=== PATIENT | female | born 1955 | race Caucasian/White ===

== ENCOUNTER → 2017-03-26 | Outpatient (CLI) | payer MEDICARE, OTHER ==
[2014-07-21 17:19] VITALS: BP 167/82
[~2017-03-26] MED LIST: ACET325T9 PO; ALBU2.5V5 NEB; ALBU8.5H8 IH; ASPI-482 PO; CALC-450 PO; CARI350T PO; CELE200C PO; CITA10TA8 PO; FENT1PAT17 TP; FLUC100T4 PO; GABA-586 PO; HYDR25TA9 PO; INSU100I13 SQ; INSU100I17 SQ; INSU100V8 SQ; IPRA4AER IH; LISI-334 PO; MELA5TAB PO; NAPR500T4 PO; PANT40TA5 PO; POTA10TA17 PO; PRED5TAB19 PO; SIMV40TA3 PO; TRAM-48 PO; TRAM50TA PO
--- NOTE | 2017-03-26 14:39 | RAD ---
3 views lumbar spine 03/26/2017 Clinical indication: Low back pain radiating to the right. Comparison: None. Findings: Multilevel lumbar spondylosis with disc space narrowing, endplate sclerosis and marginal osteophyte formation to a mild degree T12-L1 through L3-L4 and a moderate degree at L5-S1. L5-S1 facet hypertrophy. Calcified atheromatous disease of the abdominal aorta and iliac arteries. Vertebral body heights are maintained. No evidence of listhesis. Impression: 1. No radiographic evidence of acute lumbar spine fracture or significant listhesis. 2. Multilevel lumbar spondylosis, as detailed above.
[2017-03-26 15:07] LABS: CALCIUM 9.3 mg/dL (8.5-10.1); CREATININE 0.9 mg/dL (0.6-1.0); GFR 63.7; POTASSIUM 4.1 mmol/L (3.5-5.1)
[2017-03-26 15:23] LABS: BASO % 0 % (0-3); EOS # 0.1 x10^3/uL (0.0-0.7); EOS % 1 % (0-3); HEMATOCRIT 41.4 % (36.0-47.0); HEMOGLOBIN 13.3 g/dL (12.0-15.5); LYMPH # 1.5 x10^3/uL (1.0-4.8); LYMPH % 19 % (24-48); MEAN CORPUSCULAR HEMOGLOBIN 26 pg (25-35); MEAN CORPUSCULAR HGB CONC 32 g/dL (31-37); MEAN CORPUSCULAR VOLUME 81 fL (79-100); MONO # 0.4 x10^3/uL (0.0-1.1); MONO % 5 % (0-9); NEUT % 75 % (31-73); PLATELET COUNT 253 x10^3/uL (140-400); RED BLOOD COUNT 5.13 x10^6/uL (3.50-5.40); RED CELL DISTRIBUTION WIDTH 16.1 % (11.5-14.5)
[2017-03-26 16:02] LABS: BILIRUBIN,URINE NEG (NEG); CLARITY,URINE HAZY; COLOR,URINE YELLOW; GLUCOSE,URINE >=1000 mg/dL (NEG); NITRITE,URINE NEG (NEG); UROBILINOGEN,URINE 0.2 mg/dL (0.2 mg/dL)
[2017-03-26 16:03] LABS: BACTERIA,URINE MOD /HPF (0-FEW); SQUAMOUS EPITHELIAL CELL,UR MANY /LPF
[2017-03-26 16:04] LABS: YEAST,URINE PRESENT /HPF
[2017-03-28 01:09] LABS: HEMOGLOBIN A1C 9.5 % (4.8-5.6)
== END | disposition home or self-care (01) ==
LOC: DXRAD 14:10
PROVIDERS: ATTEND Family Medicine
DX: M54.31 Sciatica, right side (principal); M47.896 Other spondylosis, lumbar region; M25.78 Osteophyte, vertebrae; I10 Essential (primary) hypertension; E11.9 Type 2 diabetes mellitus without complications; R79.89 Other specified abnormal findings of blood chemistry; Z87.891 Personal history of nicotine dependence; Z79.4 Long term (current) use of insulin
CPT/HCPCS: 36415; 72100; 80048; 81001; 82043; 83036; 85025; 87086

== ENCOUNTER 2017-10-07 20:00 | Inpatient (IN) | payer MEDICARE, OTHER ==
[~2017-10-07] VITALS: Ht 161.3 cm; Wt 143.1 kg
[~2017-10-07 20:00] MED LIST changes: +NAPR-514 PO; -NAPR500T4 PO
[2017-10-07 20:30] VITALS: BP 131/81
[2017-10-07] MEDS ORDERED: CALC300T5 PO (20:54)
[2017-10-07] MEDS ORDERED: ROFL500T7 PO (20:54)
[2017-10-07] MEDS ORDERED: FAMO1TAB3 PO (20:54)
[2017-10-07] MEDS ORDERED: DICL100G18 TP (20:54)
[2017-10-07] MEDS ORDERED: FURO-68 PO (20:54)
[2017-10-07] MEDS ORDERED: METO50TA29 PO (20:54)
[2017-10-07] MEDS ORDERED: LIDO700A39 TOP (20:54)
[2017-10-07] MEDS ORDERED: INSU200I SQ (20:54)
[2017-10-07] MEDS ORDERED: [UNRECOGNIZED DRUG - CODE] TP (20:54)
[2017-10-07] MEDS ORDERED: MELA3TAB2 PO (20:54)
[2017-10-07] MEDS ORDERED: TIOT18CA IH (20:54)
[2017-10-07] MEDS ORDERED: SUCR1TAB35 PO (20:54)
[2017-10-07] MEDS ORDERED: CLOP75TA PO (20:54)
[2017-10-07] MEDS ORDERED: DILT120C80 PO (20:54)
[2017-10-07] MEDS ORDERED: INSU100I17 SQ (20:54)
[2017-10-07] MEDS ORDERED: FERR325T14 PO (20:54)
[2017-10-07] MEDS ORDERED: ALBU18HF IH (20:54)
[2017-10-07] MEDS ORDERED: EMPA25TA PO (20:54)
[2017-10-07] MEDS ORDERED: MELATONIN 3 MG TABLET PO PRN (23:30)
[2017-10-07] MEDS ORDERED: DEXTROSE 50% 25 GM / 50ML DISP.SYRIN. IV PRN (23:30)
[2017-10-07] MEDS ORDERED: GLYCERIN/WITCH HAZEL TOPICAL PADS 40'S JAR. TP PRN (23:30)
[2017-10-07] MEDS ORDERED: CALCIUM CARBONATE 500 MG TAB.CHEW PO PRN (23:30)
[2017-10-07 23:33] VITALS: BP 170/84
[2017-10-07] MEDS: ZOLPIDEM 5 MG TABLET. PO PRN (23:51)
[2017-10-07] MEDS: INSULIN GLARGINE 300 UNITS/3 ML INSULN.PEN. SQ SCH (23:52)
[2017-10-08] MEDS: IPRATRPIUM/ALBUTEROL 0.5/2.5MG 3 ML NEBU. NEB SCH ×4 (05:04→20:50)
[2017-10-08 05:38] VITALS: BP 149/78
[2017-10-08] MEDS: ACETAMINOPHEN 325 MG TABLET PO PRN (06:25)
[2017-10-08 06:47] LABS: CALCIUM 9.2 mg/dL (8.5-10.1); CREATININE 1.3 mg/dL (0.6-1.0); GFR 41.6; POTASSIUM 3.7 mmol/L (3.5-5.1)
[2017-10-08] MEDS ORDERED: INSULIN LISPRO 50 UNIT SQ SCH (08:00)
[2017-10-08] MEDS ORDERED: INSULIN ASPART 60 UNIT SQ SCH (08:00)
[2017-10-08] MEDS: NYSTATIN TOPICAL POWDER 15GM BOTTLE. TP SCH ×2 (08:46→21:13)
[2017-10-08] MEDS: ROFLUMILAST 500 MCG TABLET PO SCH (08:47)
[2017-10-08] MEDS: ASPIRIN ENTERIC COATED 81 MG TABLET.DR. PO SCH (08:47)
[2017-10-08] MEDS: LIDOCAINE (700MG/PATCH) PATCH. TD SCH (08:47)
[2017-10-08] MEDS: SUCRALFATE 1 GM TABLET. PO SCH (08:47)
[2017-10-08] MEDS: METOPROLOL SUCC 24HR ER 50 MG TAB.ER.24H. PO SCH (08:47)
[2017-10-08] MEDS: FUROSEMIDE 40 MG/4 ML VIAL IVP SCH ×2 (08:48→14:26)
[2017-10-08] MEDS: INSULIN LISPRO 300 UNITS/3 ML INSULN.PEN. SQ SCH ×3 (08:55→17:20)
[2017-10-08] MEDS: INSULIN GLARGINE 300 UNITS/3 ML INSULN.PEN. SQ SCH ×2 (08:56→21:07)
[2017-10-08] MEDS ORDERED: NON FORMULARY ITEM (Tiotropium Bromide (Spiriva) 18 MCG) IH SCH (09:00)
[2017-10-08] MEDS: NON FORMULARY ITEM (Empagliflozin (Jardiance) 25 MG) PO SCH (09:00)
[2017-10-08 10:51] VITALS: BP 123/74
--- NOTE | 2017-10-08 11:09 | PDOC2 ---
CONSULT Date of Admission DATE: 10/08/17 TIME: 10:58 Reason for Consult: CHF, acute on chronic, with preserved EF. Referring Physician: Emiliano Escoto MD Chief Complaint Shortness of breath. Source: Patient History of Present Illness She has an extensive past cardiac history including a non ST elevation myocardial infarction in May 2017 treated with drug-eluting stents to the left anterior descending and left circumflex coronary arteries, chronic diastolic congestive heart failure, paroxysmal atrial fibrillation, hypertension , type 2 diabetes mellitus, chronic obstructive pulmonary disease, and morbid obesity among other problems.For the past 1-2 weeks, she has been having increasing dyspnea on exertion as well as worsening lower extremity edema. Yesterday just moving from her bed to her commode was making her feel short of breath. She went to see her primary provider who then recommended hospitalization. She went to the emergency room at [facility] and admission was recommended. However, the hospital was fall and she was transferred to [facility] for admission. She was given intravenous Lasix in the emergency room at [facility]. This markedly helped her breathing. She still has significant edema. Prior to her myocardial infarction earlier this year, she was having chest pain. She denies any further chest pain. She has had some lightheaded spells but denies any syncope. She denies palpitations. She denies paroxysmal nocturnal dyspnea or orthopnea. Because of the congestive heart failure, a cardiology consultation was requested. Cardiovascular: CAD, CHF, HTN, OR, hyperipidemia Pulmonary: Asthma, COPD Heme/Onc: Cancer Musculoskeletal: low back pain (Chronic) Endocrine: Diabetes Past Surgical History: Appendectomy, Cholecystectomy, Cataract Removal, C- Section, Tonsillectomy, Hysterectomy Family History She denies any family history of premature coronary artery disease. Smoke: Quit Current Medications Current Medications Acetaminophen (Tylenol) 650 mg PRN Q6HRS PRN PO PAIN Last administered on at 06:25; Start 10/07/17 at 23:00 Aspirin (Aspirin Enteric Coated) 81 mg DAILYWBKFT PO Last administered on at 08:47; Start 10/08/17 at 08:00 Calcium Carbonate/ Glycine (Tums) 500 mg PRN Q4HRS PRN PO INDIGESTION; Start at 23:30 Non-Formulary Medication (Empagliflozin (Jardiance)) 25 mg DAILY PO ; Start 10/08 at 09:00; Status UNV Witch Breonna/ Glycerin (A.e.r Pads) 1 each PRN QID PRN TP RECTAL PAIN; Start 10/07/17 at 23:30 Non-Formulary Medication (Insulin Aspart (Novolog Flexpen)) 60 unit TIDWMEALS SQ ; Start 10/08/17 at 08:00; Status UNV Insulin Glargine (Lantus) 80 units BID SQ Last administered on 10/08/17at 08:56; Start 10/08/17 at 00:00 Non-Formulary Medication (Insulin Lispro (Humalog Kwikpen)) 50 unit TIDWMEALS SQ ; Start 10/08/17 at 08:00; Status UNV Lidocaine (Lidoderm) 1 patch DAILY TD Last administered on 10/08/17at 08:47; Start 10/08/17 at 09:00 Melatonin 3 mg PRN QHS PRN PO INSOMNIA; Start 10/07/17 at 23:30 Metoprolol Succinate (Toprol Xl) 50 mg DAILY PO Last administered on 10/08/17at 08:47; Start 10/08/17 at 09:00 Roflumilast (Daliresp) 500 mcg DAILY PO Last administered on 10/08/17at 08:47; Start 10/08/17 at 09:00 Sucralfate (Carafate) 1 gm DAILY PO Last administered on 10/08/17at 08:47; Start 10/08/17 at 09:00 Non-Formulary Medication (Tiotropium Ayr (Spiriva)) 18 mcg DAILY IH ; Start 10/08/17 at 09:00; Status UNV Furosemide (Lasix) 40 mg [id number] IVP Last administered on 10/08/17at 08:48; Start 10/08/17 at 09:00 Zolpidem Tartrate (Ambien) 5 mg PRN QHS PRN PO INSOMNIA, MAY REPEAT IN 1HR Last administered on 10/07/17at 23:51; Start 10/07/17 at 23:15 Insulin Human Lispro (HumaLOG) 0-9 UNITS TIDWMEALS SQ Last administered on at 08:55; Start 10/08/17 at 08:00 Dextrose 12.5 gm PRN Q15MIN PRN IV SEE COMMENTS; Start 10/07/17 at 23:30 Albuterol/ Ipratropium (Duoneb) 3 ml RTQID NEB Last administered on 10/08/17at 05 :04; Start 10/08/17 at 08:00 Miscellaneous (Lidoderm Patch Removal) 1 ea QHS MC ; Start 10/08/17 at 21:00 Nystatin (Nystop) 1 jay BID TP Last administered on 10/08/17at 08:46; Start at 09:00 Active Scripts Active Reported Tums Dual Action Tablet Chew (Famotidine/Ca Carb/Mag Hydrox) 1 Each Tab.chew 1 Each PO Tums (Calcium Carbonate) 300 Mg Tab.chew 300 Mg PO PRN Q4HRS PRN LAST DOSE GIVEN: DATE: TIME: NEXT DOSE DUE: DATE: TIME: Melatonin 3 Mg Tablet 3 Mg PO PRN QHS PRN LAST DOSE GIVEN: DATE: TIME: NEXT DOSE DUE: DATE: TIME: Ventolin Hfa Inhaler (Albuterol Sulfate) 18 Gm Hfa.aer.ad 2 Puff IH PRN Q6HRS PRN LAST DOSE GIVEN: DATE: TIME: NEXT DOSE DUE: DATE: TIME: Carafate (Sucralfate) 1 Gm Tablet 1 Gm PO DAILY LAST DOSE GIVEN: DATE: TIME: NEXT DOSE DUE: DATE: TIME: Spiriva (Tiotropium Ayr) 18 Mcg Cap.w.dev 18 Mcg IH DAILY LAST DOSE GIVEN: DATE: TIME: NEXT DOSE DUE: DATE: TIME: Novolog Flexpen (Insulin Aspart) 100 Unit/1 Ml Insuln.pen 60 Unit SQ TIDWMEALS LAST DOSE GIVEN: DATE: TIME: NEXT DOSE DUE: DATE: TIME: Medi Pads (Glycerin/Witch Breonna [place]) 1 Each Med..pad 1 Each TP QID PRN LAST DOSE GIVEN: DATE: TIME: NEXT DOSE DUE: DATE: TIME: Ferrous Sulfate 325 Mg Tablet 325 Mg PO HS LAST DOSE GIVEN: DATE: TIME: NEXT DOSE DUE: DATE: TIME: Metoprolol Succinate ( Xl ) (Metoprolol Succinate) 50 Mg Tab.er.24h 50 Mg PO DAILY LAST DOSE GIVEN: DATE: TIME: NEXT DOSE DUE: DATE: TIME: Lidocaine 1 Each Adh..patch 1 Patch TOP DAILY LAST DOSE GIVEN: DATE: TIME: NEXT DOSE DUE: DATE: TIME: Jardiance (Empagliflozin) 25 Mg Tablet 25 Mg PO DAILY LAST DOSE GIVEN: DATE: TIME: NEXT DOSE DUE: DATE: TIME: Humalog Kwikpen (Insulin Lispro) 200 Unit/1 Ml Insuln.pen 50 Unit SQ TIDWMEALS LAST DOSE GIVEN: DATE: TIME: NEXT DOSE DUE: DATE: TIME: Lasix (Furosemide) 40 Mg Tablet 40 Mg PO DAILY LAST DOSE GIVEN: DATE: TIME: NEXT DOSE DUE: DATE: TIME: Diltiazem 24HR Cd (Diltiazem Hcl) 120 Mg Cap.er.24h 120 Mg PO DAILY LAST DOSE GIVEN: DATE: TIME: NEXT DOSE DUE: DATE: TIME: Voltaren (Diclofenac Sodium) 100 Gm Gel..gram. 1 Jay TP PRN QID PRN LAST DOSE GIVEN: DATE: TIME: NEXT DOSE DUE: DATE: TIME: Daliresp (Roflumilast) 500 Mcg Tablet 500 Mg PO DAILY LAST DOSE GIVEN: DATE: TIME: NEXT DOSE DUE: DATE: TIME: Clopidogrel (Clopidogrel Bisulfate) 75 Mg Tablet 75 Mg PO DAILY LAST DOSE GIVEN: DATE: TIME: NEXT DOSE DUE: DATE: TIME: Tramadol Hcl (Tramadol HCl) 50 Mg Tablet 50 Mg PO QIDPRN PRN LAST DOSE GIVEN: DATE: TIME: NEXT DOSE DUE: DATE: TIME: Celexa (Citalopram Hydrobromide) 10 Mg Tablet 10 Mg PO DAILY LAST DOSE GIVEN: DATE: TIME: NEXT DOSE DUE: DATE: TIME: Lantus (Insulin Glargine,Hum.rec.anlog) 100 Unit/1 Ml Vial 80 Unit SQ BID LAST DOSE GIVEN: DATE: TIME: NEXT DOSE DUE: DATE: TIME: Tylenol (Acetaminophen) 325 Mg Tablet 2 Tab PO PRN Q6HRS PRN LAST DOSE GIVEN: DATE: TIME: NEXT DOSE DUE: DATE: TIME: Simvastatin 40 Mg Tablet 40 Mg PO HS LAST DOSE GIVEN: DATE: TIME: NEXT DOSE DUE: DATE: TIME: Aspir 81 (Aspirin) 81 Mg Tablet.dr 81 Mg PO DAILY LAST DOSE GIVEN: DATE: TIME: NEXT DOSE DUE: DATE: TIME: Hydrochlorothiazide Tablet (Hydrochlorothiazide) 25 Mg Tablet 25 Mg PO TID LAST DOSE GIVEN: DATE: TIME: NEXT DOSE DUE: DATE: TIME: Allergies: Coded Allergies: Iodinated Contrast Media - IV Dye (Verified Allergy, Intermediate, 8/9/14) Tomato (Verified Allergy, Intermediate, Swelling, 10/15/13) ciprofloxacin (Verified Allergy, Intermediate, Rash, 10/15/13) codeine (Verified Allergy, Intermediate, 10/15/13) Review of System Review of 10 organ systems is as per the history of present illness, otherwise negative General: Alert, Oriented X3, Cooperative, No acute distress, Other (Morbidly obese.) HEENT: Atraumatic, EOMI, Mucous membr. moist/pink Lungs: Clear to auscultation, Normal air movement Heart: Regular rate, Normal S1, Normal S2, No murmurs, Other (1/6 systolic ejection murmur.) Abdomen: Normal bowel sounds, Soft, No tenderness Extremities: No clubbing, No cyanosis, No edema, Normal pulses, Other ( 2+ bilateral pretibial edema.) Skin: No rashes Neuro: Normal speech, Strength at 5/5 X4 ext, Normal tone, Cranial nerves 3-12 NL Psych/Mental Status: Mental status NL, Mood NL VITALS Vital Signs Date Time Temp Pulse Resp B/P (MAP) Pulse Ox O2 Delivery O2 Flow Rate FiO2 10/08/17 10:51 97.9 61 20 123/74 (90) 99 Nasal Cannula 3.0 Labs Laboratory Tests Test 10/07/17 21:48 10/08/17 06:20 10/08/17 07:43 Glucose (Fingerstick) 269 mg/dL (70-99) 191 mg/dL (70-99) Sodium Level 142 mmol/L (136-145) Potassium Level 3.7 mmol/L (3.5-5.1) Chloride Level 101 mmol/L (98-107) Carbon Dioxide Level 34 mmol/L (21-32) Anion Gap 7 (6-14) Blood Urea Nitrogen 25 mg/dL (7-20) Creatinine 1.3 mg/dL (0.6-1.0) Estimated GFR (Cockcroft-Gault) 41.6 Glucose Level 226 mg/dL (70-99) Calcium Level 9.2 mg/dL (8.5-10.1) Creatine Kinase 33 U/L (26-192) Troponin I Quantitative < 0.017 ng/mL (0-0.055) Images ECHOCARDIOGRAM (05/17/2017): Technically difficult study. Normal left ventricular systolic function with an estimated ejection fraction is 65%. Valvular structures not well seen, no obvious significant abnormalities. No significant change compared to the previous study, dated 05/24/2015. CARDIAC CATHETERIZATION AND PERCUTANEOUS CORONARY INTERVENTION (05/17/2017): Drug-eluting stent to proximal left circumflex coronary artery. drug-eluting stent to mid left anterior descending coronary artery. Assessment/Plan CHF, acute on chronic, with preserved ejection fraction. Exact reason why she tipped over the edges unclear. She is responding to IV Lasix. I would consider doubling her dose of home Lasix when she is discharged. This could either be given as 1 large dose in the morning or split as 2 doses with 1 in the morning and 1 in the early afternoon. Her renal function will need to be monitored closely to make sure she does not developing worsening renal function. She should continue on her beta-divine and calcium channel divine. Coronary artery disease. She is not having any angina. Her cardiac enzyme levels are negative. She should continue on aspirin, clopidogrel, beta-divine , and statin medication. Essential hypertension. Blood pressure appears reasonably controlled on the present medications. These should be continued. Hypercholesterolemia. Continue statin medication. Chronic kidney disease, stage II to stage III. As above, this will need to be watched closely if she goes home on a higher dose of diuretic. Morbid obesity. This is certainly contributing to the patient's edema and shortness of breath. She needs to lose weight. Disposition. Once the patient is euvolemic and discharged home, she can follow up with her regular shearer helper at [facility]. We will continue to follow the patient and we are always available 24 hours a day by telephone if you have any questions at night or on the weekends. TREVON GRANDE Jr, MD Oct 08, 2017 11:09
[2017-10-08 14:42] VITALS: BP 160/72
[2017-10-08 19:36] VITALS: BP 168/78
[2017-10-08] MEDS: PATCH REMOVAL. MC SCH (21:00)
[2017-10-08] MEDS: ZOLPIDEM 5 MG TABLET. PO PRN ×2 (21:06→23:30)
[2017-10-08] MEDS: ATORVASTATIN CALCIUM 20 MG TABLET PO SCH (21:06)
[2017-10-08] MEDS: KETOROLAC 15 MG/ML VIAL. IV PRN (21:07)
[2017-10-08 22:38] VITALS: BP 159/65
[2017-10-08] MEDS: DICLOFENAC SODIUM 1% TOPICAL GEL 100GM TUBE. TP PRN (23:30)
[2017-10-09] MEDS: IPRATRPIUM/ALBUTEROL 0.5/2.5MG 3 ML NEBU. NEB SCH ×4 (05:41→20:52)
[2017-10-09 05:51] VITALS: BP 115/71
[2017-10-09 06:41] LABS: BASO # 0.1 x10^3/uL (0.0-0.2); BASO % 1 % (0-3); EOS # 0.2 x10^3/uL (0.0-0.7); EOS % 2 % (0-3); HEMATOCRIT 30.9 % (36.0-47.0); HEMOGLOBIN 9.6 g/dL (12.0-15.5); LYMPH # 1.5 x10^3/uL (1.0-4.8); LYMPH % 17 % (24-48); MEAN CORPUSCULAR HEMOGLOBIN 27 pg (25-35); MEAN CORPUSCULAR HGB CONC 31 g/dL (31-37); MEAN CORPUSCULAR VOLUME 86 fL (79-100); MONO # 0.6 x10^3/uL (0.0-1.1); MONO % 7 % (0-9); NEUT # 6.2 x10^3uL (1.8-7.7); NEUT % 73 % (31-73); PLATELET COUNT 260 x10^3/uL (140-400); RED BLOOD COUNT 3.61 x10^6/uL (3.50-5.40); RED CELL DISTRIBUTION WIDTH 18.6 % (11.5-14.5); WHITE BLOOD COUNT 8.5 x10^3/uL (4.0-11.0)
[2017-10-09 06:53] LABS: CALCIUM 8.9 mg/dL (8.5-10.1); CREATININE 1.1 mg/dL (0.6-1.0); GFR 50.5; POTASSIUM 3.5 mmol/L (3.5-5.1)
[2017-10-09] MEDS: ASPIRIN ENTERIC COATED 81 MG TABLET.DR. PO SCH (08:16)
[2017-10-09] MEDS: KETOROLAC 15 MG/ML VIAL. IV PRN ×2 (08:17→21:34)
[2017-10-09] MEDS: INSULIN LISPRO 300 UNITS/3 ML INSULN.PEN. SQ SCH ×3 (08:18→17:01)
[2017-10-09] MEDS: NON FORMULARY ITEM (Empagliflozin (Jardiance) 25 MG) PO SCH (09:00)
[2017-10-09] MEDS: FUROSEMIDE 40 MG/4 ML VIAL IVP SCH ×3 (09:31→14:36)
[2017-10-09] MEDS: SUCRALFATE 1 GM TABLET. PO SCH (09:31)
[2017-10-09] MEDS: METOPROLOL SUCC 24HR ER 50 MG TAB.ER.24H. PO SCH (09:32)
[2017-10-09] MEDS: CITALOPRAM 10 MG TABLET. PO SCH (09:32)
[2017-10-09] MEDS: ROFLUMILAST 500 MCG TABLET PO SCH (09:32)
[2017-10-09] MEDS: CLOPIDOGREL BISULFATE 75 MG TABLET PO SCH (09:32)
[2017-10-09] MEDS: NYSTATIN TOPICAL POWDER 15GM BOTTLE. TP SCH ×2 (09:34→21:16)
[2017-10-09] MEDS: LIDOCAINE (700MG/PATCH) PATCH. TD SCH (09:34)
[2017-10-09] MEDS: INSULIN GLARGINE 300 UNITS/3 ML INSULN.PEN. SQ SCH ×2 (09:39→21:14)
[2017-10-09 10:09] VITALS: BP 116/69
[2017-10-09] MEDS: metOLazone 2.5 MG TABLET PO SCH (12:13)
[2017-10-09 15:03] VITALS: BP 171/77
[2017-10-09 19:25] VITALS: BP 166/80
[2017-10-09] MEDS: ATORVASTATIN CALCIUM 20 MG TABLET PO SCH (21:15)
[2017-10-09] MEDS: PATCH REMOVAL. MC SCH (21:16)
[2017-10-09] MEDS: ACETAMINOPHEN 325 MG TABLET PO PRN (21:34)
[2017-10-09] MEDS: DICLOFENAC SODIUM 1% TOPICAL GEL 100GM TUBE. TP PRN (21:34)
[2017-10-09] MEDS: ZOLPIDEM 5 MG TABLET. PO PRN (21:34)
[2017-10-09 23:13] VITALS: BP 163/78
[2017-10-10] MEDS ORDERED: HYDROcodone/APAP 5/325MG 1 TAB TABLET PO PRN (01:00)
--- NOTE | 2017-10-10 02:15 | PN ---
DATE: 10/08/2017 SUBJECTIVE: A 62-year-old female in with acute on top of chronic diastolic heart failure. The patient is resting fairly comfortably. Past cardiac history is extensive for [id number] OK as well as congestive heart failure and the like. The patient has a preserved EF. She is doing somewhat better. She is diuresing much better now with the IV Lasix than she did previously ____ therefore she is breathing better. OBJECTIVE: VITAL SIGNS: Blood pressure 160/72, respiratory rate 20, pulse 60, afebrile. GENERAL: The patient is morbidly obese. The patient doing better. LUNGS: Diminished but clear. CARDIOVASCULAR: Regular sinus rhythm. ABDOMEN: Soft, nontender, morbidly obese ____. The patient otherwise is resting fairly comfortably. EXTREMITIES: No clubbing, cyanosis, +1 to 2 pitting edema. NEUROLOGIC: Stable. IMPRESSION: Acute on top of chronic diastolic heart failure, morbidly obese with body mass index greater than 50, type 2 diabetes, chronic kidney disease 3. PLAN: The patient continued to be diuresed. Recheck her in the morning for possible discharge. MURPHY MAI MD DR: MADISON/mirtha JOB#: [id number] / [id number]
[2017-10-10 05:34] VITALS: BP 163/74
[2017-10-10] MEDS: KETOROLAC 15 MG/ML VIAL. IV PRN (05:53)
[2017-10-10] MEDS: IPRATRPIUM/ALBUTEROL 0.5/2.5MG 3 ML NEBU. NEB SCH ×2 (05:58→10:52)
[2017-10-10 07:23] LABS: BASO % 1 % (0-3); EOS # 0.2 x10^3/uL (0.0-0.7); EOS % 3 % (0-3); HEMATOCRIT 32.5 % (36.0-47.0); HEMOGLOBIN 9.9 g/dL (12.0-15.5); LYMPH # 1.5 x10^3/uL (1.0-4.8); LYMPH % 18 % (24-48); MEAN CORPUSCULAR HEMOGLOBIN 26 pg (25-35); MEAN CORPUSCULAR HGB CONC 30 g/dL (31-37); MEAN CORPUSCULAR VOLUME 85 fL (79-100); MONO # 0.6 x10^3/uL (0.0-1.1); MONO % 7 % (0-9); NEUT # 5.9 x10^3uL (1.8-7.7); NEUT % 72 % (31-73); PLATELET COUNT 272 x10^3/uL (140-400); RED BLOOD COUNT 3.81 x10^6/uL (3.50-5.40); WHITE BLOOD COUNT 8.2 x10^3/uL (4.0-11.0)
[2017-10-10 07:28] LABS: CALCIUM 9.2 mg/dL (8.5-10.1); CREATININE 1.2 mg/dL (0.6-1.0); GFR 45.7; POTASSIUM 3.2 mmol/L (3.5-5.1)
[2017-10-10] MEDS: INSULIN LISPRO 300 UNITS/3 ML INSULN.PEN. SQ SCH ×2 (07:55→12:19)
[2017-10-10] MEDS: ASPIRIN ENTERIC COATED 81 MG TABLET.DR. PO SCH (07:57)
[2017-10-10] MEDS: NON FORMULARY ITEM (Empagliflozin (Jardiance) 25 MG) PO SCH (09:00)
[2017-10-10] MEDS: SUCRALFATE 1 GM TABLET. PO SCH (09:23)
[2017-10-10] MEDS: CLOPIDOGREL BISULFATE 75 MG TABLET PO SCH (09:24)
[2017-10-10] MEDS: ROFLUMILAST 500 MCG TABLET PO SCH (09:24)
[2017-10-10] MEDS: METOPROLOL SUCC 24HR ER 50 MG TAB.ER.24H. PO SCH (09:24)
[2017-10-10] MEDS: metOLazone 2.5 MG TABLET PO SCH (09:24)
[2017-10-10] MEDS: CITALOPRAM 10 MG TABLET. PO SCH (09:24)
[2017-10-10] MEDS: FUROSEMIDE 40 MG/4 ML VIAL IVP SCH (09:25)
[2017-10-10] MEDS: NYSTATIN TOPICAL POWDER 15GM BOTTLE. TP SCH (09:25)
[2017-10-10] MEDS: LIDOCAINE (700MG/PATCH) PATCH. TD SCH (09:25)
[2017-10-10] MEDS: INSULIN GLARGINE 300 UNITS/3 ML INSULN.PEN. SQ SCH (09:29)
[2017-10-10] MEDS: ACETAMINOPHEN 325 MG TABLET PO PRN (09:31)
[2017-10-10] MEDS ORDERED: ELECTROLYTE (ICU) PROTOCOL. MC PRN (10:45)
[2017-10-10] MEDS ORDERED: POTASSIUM CHLORIDE 20 MEQ TABLET.ER. PO ONE (11:00)
[2017-10-10] MEDS ORDERED: POTA20TA4 PO (11:04)
[2017-10-10] MEDS ORDERED: FURO10VI42 PO (11:04)
[2017-10-10] MEDS ORDERED: NYST60PO TP (11:04)
[2017-10-10] MEDS ORDERED: METO2.5T PO (11:04)
[2017-10-10 11:35] VITALS: BP 146/71
--- NOTE | 2017-10-10 12:03 | DS ---
DATE OF DISCHARGE: 10/10/2017 HOSPITAL COURSE: The patient came in with acute exacerbation of COPD. The patient made good progress. She had some fluid overload as well, but she was given IV Lasix, aggressive pulmonary toilet. The patient made good progress during the rest of her hospitalization and there were no complications. The patient's blood sugars were monitored. Potassium is a little bit low, but she was increased on her oral potassium and will be rechecked as an outpatient. The patient continues to be monitored by home health. MEDICATIONS: See MRAD. DIET: 2 gram sodium heart healthy diet. IMPRESSION: Acute exacerbation of chronic obstructive pulmonary disease, swelling to the extremities, morbid obesity, hypokalemia, type 2 diabetes, chronic kidney disease stage 3. MURPHY MAI MD DR: MADISON/mirtha JOB#: [id number] / [id number]
== END 2017-10-10 13:40 | disposition home or self-care (01) | DRG 291 ==
LOC: 1 SOUTH 20:00
PROVIDERS: ADMIT Family Medicine; ATTEND Family Medicine
DX: I13.0 Hypertensive heart and chronic kidney disease with heart failure and stage 1 through stage 4 chronic kidney disease, or unspecified chronic kidney disease (principal); I50.43 Acute on chronic combined systolic (congestive) and diastolic (congestive) heart failure; J44.1 Chronic obstructive pulmonary disease with (acute) exacerbation; Z68.43 Body mass index [BMI] 50.0-59.9, adult; E11.22 Type 2 diabetes mellitus with diabetic chronic kidney disease; E66.01 Morbid (severe) obesity due to excess calories; E78.00 Pure hypercholesterolemia, unspecified; G89.29 Other chronic pain; I25.10 Atherosclerotic heart disease of native coronary artery without angina pectoris; I48.0 Paroxysmal atrial fibrillation; N18.3 Chronic kidney disease, stage 3 (moderate); K21.9 Gastro-esophageal reflux disease without esophagitis; M47.9 Spondylosis, unspecified; M79.7 Fibromyalgia; D50.0 Iron deficiency anemia secondary to blood loss (chronic); M54.5 Low back pain; E87.6 Hypokalemia; Z90.49 Acquired absence of other specified parts of digestive tract; Z90.89 Acquired absence of other organs; Z83.3 Family history of diabetes mellitus; Z80.9 Family history of malignant neoplasm, unspecified; Z87.891 Personal history of nicotine dependence; Z88.1 Allergy status to other antibiotic agents; Z88.8 Allergy status to other drugs, medicaments and biological substances; Z91.018 Allergy to other foods; Z91.048 Other nonmedicinal substance allergy status; Z79.4 Long term (current) use of insulin; I25.2 Old myocardial infarction; Z90.710 Acquired absence of both cervix and uterus; Z79.899 Other long term (current) drug therapy; Z88.5 Allergy status to narcotic agent; Z91.041 Radiographic dye allergy status
CPT/HCPCS: 36415; 80048; 82550; 82947; 84484; 85025; 87641; 94640; J1815; J1885; J1940; J7620

== ENCOUNTER 2017-10-10 17:51 | Emergency (ER) | payer MEDICARE, OTHER ==
[~2017-10-10] VITALS: Ht 161.3 cm; Wt 147.9 kg
[~2017-10-10 17:51] MED LIST changes: +ALBU18HF IH; +CALC300T5 PO; +CLOP75TA PO; +DICL100G18 TP; +DILT120C80 PO; +EMPA25TA PO; +FAMO1TAB3 PO; +FERR325T14 PO; +FURO-68 PO; +FURO10VI42 PO; +INSU200I SQ; +LIDO700A39 TOP; +MELA3TAB2 PO; +METO2.5T PO; +METO50TA29 PO; +NYST60PO TP; +POTA20TA4 PO; +ROFL500T7 PO; +SUCR1TAB35 PO; +TIOT18CA IH; +[UNRECOGNIZED DRUG - CODE] TP
--- NOTE | 2017-10-10 18:43 | PHYS DOC ---
Past History Past Medical History: Arthritis, Asthma, Bronchitis, Cancer, COPD, Diabetes, Hypertension, Kidney Stones, Pneumonia, Other Past Surgical History: Appendectomy, Cholecystectomy, , Hysterectomy, Tonsillectomy Alcohol Use: None Drug Use: None Adult General Chief Complaint Chief Complaint: LOWER EXT PAIN [facility] HPI 62-year-old female presents with continued bilateral lower extremity pain. Patient was discharged from this facility this morning after exacerbation of CHF. While she was in the hospital, she continued to have some lower extremity pain. The patient fell onto concrete about a week ago. She was checked out at that time mental for workup was negative. She tells me she continues to have pain and is unsure what to do. Her doctor told her not to take her tramadol pain medication, but did not give her a strategy for pain management replace that. She is planning to go to her PCP as a walk-in tomorrow. She is asking for pain medication for tonight so that she'll be able to sleep. She understands this and she has no new trauma, that I cannot provide her a prescription for pain medication. Review of Systems Review of Systems Constitutional: Denies fever or chills [] Eyes: Denies change in visual acuity, redness, or eye pain [] HENT: Denies nasal congestion or sore throat [] Respiratory: Denies cough or shortness of breath [] Cardiovascular: No additional information not addressed in HPI [] GI: Denies abdominal pain, nausea, vomiting, bloody stools or diarrhea [] : Denies dysuria or hematuria [] Musculoskeletal: Bilateral lower extremity pain[] Integument: Denies rash or skin lesions [] Neurologic: Denies headache, focal weakness or sensory changes [] Endocrine: Denies polyuria or polydipsia [] All other systems were reviewed and found to be within normal limits, except as documented in this note. Current Medications Current Medications Current Medications Medications (Trade) Dose Ordered Sig/Wagner Start Time Stop Time Status Last Admin Dose Admin Acetaminophen/ Hydrocodone Bitart (Lortab 5/325) 1 tab 1X ONCE 10/10/17 18:45 10/10/17 18:46 Diazepam (Valium) 5 mg 1X ONCE 10/10/17 18:45 10/10/17 18:46 Allergies Allergies Allergies Coded Allergies Type Severity Reaction Last Updated Verified Iodinated Contrast Media - IV Dye Allergy Intermediate 10/14/13 Yes Tomato Allergy Intermediate Swelling 10/15/13 Yes ciprofloxacin Allergy Intermediate Rash 10/15/13 Yes codeine Allergy Intermediate 10/15/13 Yes Physical Exam Physical Exam Constitutional: Well developed, well nourished, no acute distress, non-toxic appearance. [] HENT: Normocephalic, atraumatic, bilateral external ears normal, oropharynx moist, no oral exudates, nose normal. [] Eyes: PERRLA, EOMI, conjunctiva normal, no discharge. [] Neck: Normal range of motion, no tenderness, supple, no stridor. [] Cardiovascular:Heart rate regular rhythm, no murmur [] Lungs & Thorax: Bilateral breath sounds decreased. Patient is on oxygen at baseline.[] Abdomen: Bowel sounds normal, soft, no tenderness, no masses, no pulsatile masses. [] Skin: Warm, dry, no erythema, no rash. Lower extremity skin sensitive to palpation.[] Back: No tenderness, no CVA tenderness. [] Extremities: No tenderness, no cyanosis, no clubbing, ROM intact, bilateral pitting edema 3+[] Neurologic: Alert and oriented X 3, normal motor function, normal sensory function, no focal deficits noted. [] Psychologic: Affect normal, judgement normal, mood normal. [] EKG EKG [] Radiology/Procedures Radiology/Procedures [] Course & Med Decision Making Course & Med Decision Making Pertinent Labs and Imaging studies reviewed. (See chart for details) I discussed with the patient that I can give her pain medication in the ED for this evening, but that I cannot discharge her with prescription. She was satisfied with this. She states that she will see her PCP in the office tomorrow to discuss her continued pain management. I will give her one Sigurd 5/ 325 as well as a Valium 5 mg. Her pain is a shooting pain that comes in waves and could be spasms. The Valium should help with this in addition to the pain medication. [] Dragon Disclaimer Dragon Disclaimer This electronic medical record was generated, in whole or in part, using a voice recognition dictation system. Departure Departure: Referrals: MURPHY MAI MD (PCP) ARETHA EASTON DO Oct 10, 2017 18:43
[2017-10-10] MEDS ORDERED: HYDROcodone/APAP 5/325MG 1 TAB TABLET PO ONE (18:45)
[2017-10-10] MEDS ORDERED: diazePAM 5 MG TABLET PO ONE (18:45)
[2017-10-10 20:10] VITALS: BP 137/58
== END 2017-10-10 20:13 | disposition home or self-care (01) ==
LOC: ER 17:51
DX: M79.605 Pain in left leg (principal); M79.604 Pain in right leg; G89.11 Acute pain due to trauma; M19.90 Unspecified osteoarthritis, unspecified site; J44.9 Chronic obstructive pulmonary disease, unspecified; E11.9 Type 2 diabetes mellitus without complications; I10 Essential (primary) hypertension; Z87.442 Personal history of urinary calculi; Z91.041 Radiographic dye allergy status; Z88.1 Allergy status to other antibiotic agents; Z88.5 Allergy status to narcotic agent; Z91.018 Allergy to other foods; W17.89XA Other fall from one level to another, initial encounter; Y93.89 Activity, other specified; Y92.89 Other specified places as the place of occurrence of the external cause; Y99.8 Other external cause status
CPT/HCPCS: 99284